=== PATIENT | female | born 1960 | race Caucasian/White ===

== ENCOUNTER 2018-01-31 00:36 | Emergency (ER) | payer SELFPAY ==
--- NOTE | 2018-01-31 00:41 | ER Report ---
History and Physical Time Seen By MD: 00:41 HPI/ROS CHIEF COMPLAINT: Left arm injury HISTORY OF PRESENT ILLNESS: 57-year-old female who was climbing on rocks when she fell. She braced herself with outstretched left arm. She has pain in the left elbow region. Patient denies any other injuries. She describes 8/10 pain in the left elbow region, especially with palpation and movement. Patient's complaining of moderate to severe nausea. She has not vomited. Allergies: Coded Allergies: sulfamethoxazole (Verified Adverse Reaction, Intermediate, COUGH, 01/31/18) trimethoprim (Verified Adverse Reaction, Intermediate, COUGH, 01/31/18) Home Meds Active Scripts Ondansetron Hcl (ZOFRAN) 4 Mg Tablet, 4 MG PO Q6H Y for NAUSEA/VOMITING, #12 Prov:ANGEL LUISDILEEP Osorio DO 01/31/18 Hydrocodone Bit/Acetaminophen (NORCO 5-325 TABLET) 1 Each Tablet, 1 EACH PO Q4H Y for PAIN, #15 TAB Prov:DILEEP HEIN DO 01/31/18 Reviewed Nurses Notes: Yes Old Medical Records Reviewed: Yes Constitutional Vital Sign - Last 24 Hours 01/31/18 00:42 Temp 98.3 Pulse 73 Resp 16 B/P (MAP) 134/84 Pulse Ox 94 O2 Delivery Room Air Physical Exam General appearance: Mild distress Respiratory: Chest is non tender, lungs are clear to auscultation. Cardiac: Regular rate and rhythm Extremities: Examination of the left arm reveals tenderness around the elbow. There is in the joint effusion. The wrist and hand are unremarkable. The left hand is neurovascularly intact. DIFFERENTIAL DIAGNOSIS: After history and physical exam differential diagnosis was considered for sprain, strain, fracture, dislocation, contusion Medical Decision Making EKG/Imaging Imaging X-ray: Three-view left elbow was obtained. I viewed the images myself on the PACS system. My interpretation of the images is: There is a mildly displaced left radial head fracture. There is an anterior fat pad sign noted on the lateral view of the elbow. The radiologist interpretation had no clinically significant variation from this interpretation. ED Course/Re-evaluation ED Course Patient was admitted to an examination room. H&P was done. The differential diagnosis was considered. Diagnostic x-rays were performed. Patient was medicated for nausea and for pain. Diagnostic x-rays returned 8 nondisplaced radial head fracture. There is also a large joint effusion. Patient's placed a long-arm splint and a sling. Neurovascular function was noted to be intact post splinting. Patient's advised ibuprofen 600 mg 3 times daily with food. Ice packs to the affected area for 2-3 days. Patient advised to follow-up with orthopedic doctor in 4-5 days for cast placement. Patient was given a prescription for [place] and Zofran. Decision to Disposition Date: Jan 31, 2018 Decision to Disposition Time: 01:06 Depart Departure Latest Vital Signs Vital Signs Date Time Temp Pulse Resp B/P (MAP) Pulse Ox O2 Delivery O2 Flow Rate FiO2 01/31/18 00:42 98.3 73 16 134/84 94 Room Air Impression: Primary Impression: Fracture of radial head, left, closed Condition: Improved Disposition: HOME OR SELF-CARE Referrals: JONO BARBOSA MD [place] Ondansetron Hcl (ZOFRAN) 4 Mg Tablet 4 MG PO Q6H Y for NAUSEA/VOMITING, #12 Prov: DILEEP HEIN DO 01/31/18 Hydrocodone Bit/Acetaminophen (NORCO 5-325 TABLET) 1 Each Tablet 1 EACH PO Q4H Y for PAIN, #15 TAB Prov: DILEEP HEIN DO 01/31/18 Patient Instructions: Elbow Fracture (ED) Additional Instructions: Take ibuprofen 200 mg 3 tablets 3 times a day with food Elevate your right arm and apply ice to the elbow area Follow-up with orthopedic surgeon and have a cast placed on your left arm in for 5 days Problem Qualifiers Primary Impression: Fracture of radial head, left, closed Encounter type: initial encounter Fracture alignment: displaced Qualified Codes: S52.122A - Displaced fracture of head of left radius, initial encounter for closed fracture DILEEP HEIN DO Jan 31, 2018 00:41
[2018-01-31 00:42] VITALS: BP 134/84
[2018-01-31] MEDS ORDERED: APAP/HYDROCODONE 325/5 TAB PO ONE (00:55)
[2018-01-31] MEDS ORDERED: ONDANSETRON 4 MG ODT TABDP SL ONE (01:00)
[2018-01-31] MEDS ORDERED: HYDR-4309 PO (01:08)
[2018-01-31] MEDS ORDERED: ONDA4TAB97 PO (01:08)
--- NOTE | 2018-01-31 01:22 | RADIOLOGY IMAGING REPORT ---
FAC[place] [facility] [place] NAME: Yesi Daniels : 1960 MR: [id number] V: [id number] EXAM DATE: ORDERING PHYSICIAN: DILEEP HEIN TECHNOLOGIST: Location: [facility] Patient: Yesi Daniels : 1960 Visit/Account:[id number] Date of Sevice: 01/31/2018 ELBOW 3 VIEW LEFT COMPARISONS: None. ADDITIONAL PERTINENT HISTORY: Fall with pain FINDINGS: Osseous structures: Nondisplaced left radial head fracture. Joint spaces: Elevation of the anterior and posterior fat pads compatible underlying joint effusion. Surrounding soft tissues: Negative. IMPRESSION: 1. Nondisplaced left radial head fracture 2. Associated joint effusion. Report Dictated By: Yehuda Arango MD at 01/31/2018 1:16 AM Report E-Signed By: Yehuda Arango MD at 01/31/2018 1:17 AM WSN:[id number]
== END 2018-01-31 01:40 | disposition home or self-care (01) ==
LOC: ER 00:59
DX: S52.122A Displaced fracture of head of left radius, initial encounter for closed fracture (principal)
CPT/HCPCS: 29105; 73080; 99283; A4565; S0119